=== PATIENT | male | born 1935 | race Caucasian/White ===

== ENCOUNTER 2019-05-26 13:25 | Outpatient (CLI) | payer OTHER, MEDICARE ==
--- NOTE | 2019-05-26 15:52 | Ultrasound Report ---
Reason: ELEVATED LDH Procedure Date: 05/26/2019 Accession Number: [id number] / [id number] Procedure: US - Abdomen Complete CPT Code: FULL RESULT: EXAM: ABDOMEN ULTRASOUND EXAM DATE: 05/26/2019 02:35 PM. CLINICAL HISTORY: ELEVATED LDH. 6 weeks status post CABG COMPARISON: ABDOMEN/PELVIS W/O 09/30/2014 10:33 PM. TECHNIQUE: Real-time scanning was performed with static images obtained. FINDINGS: Liver: Normal in size and increased in echotexture. 14 cm. Main portal vein flow: Hepatopetal. Gallbladder: Surgically absent. Biliary System: Common bile duct measures 7.3 mm. No intrahepatic or extrahepatic ductal dilatation. Pancreas: Not well seen. Kidneys: Right: 9.3 cm longitudinally. Normal. No contour-deforming mass, stones, or hydronephrosis. Left: 9.8 cm longitudinally. Simple cyst 2.2 x 2.4 x 2.6 cm lower pole. No contour-deforming mass, stones, or hydronephrosis. Spleen: 10.4 cm. Normal in size and echotexture. Aorta and Inferior Vena Cava: Aortic plaque. No aneurysm. Free fluid: None. IMPRESSION: 1. Increased hepatic echogenicity, likely fatty infiltration. 2. Status post cholecystectomy. 3. Left renal simple cyst. 4. Otherwise negative. RADIA
== END 2019-05-26 13:26 | disposition home or self-care (01) ==
LOC: DI 13:25
PROVIDERS: ATTEND Nurse Practitioner Family
DX: N28.1 Cyst of kidney, acquired (principal); Z90.49 Acquired absence of other specified parts of digestive tract
CPT/HCPCS: 76700

== ENCOUNTER 2023-08-29 20:14 | Emergency (ER) | payer MEDICARE, OTHER ==
[2023-08-29 20:27] VITALS: O2SAT 96
--- NOTE | 2023-08-29 20:32 | ED Physician Documentation ---
PD HPI HEAD INJURY - Stated complaint Stated Complaint: HEAD/NOSE LAC - Chief complaint Chief Complaint: Trauma Hd/Nk - Additional information Additional information: HPI from patient. At approximately 7 PM this evening, patient fell while at home taking out the garbage. He says he caught his foot on the grass and this is what caused him to fall forward. He sustained forehead abrasion and nasal laceration. He was having epistaxis which resolved. He denies loss of consciousness, headache, nausea/vomiting, AMS. Patient does not recall when his last tetanus shot was. He does not take any blood thinners aside from low-dose aspirin daily. Review of Systems Eyes: reports: Reviewed and negative Nose: reports: Epistaxis (resolved) Neurologic: denies: Headache PD PAST MEDICAL HISTORY - Past Medical History Past Medical History: Yes Cardiovascular: Hypertension GI: GERD, Hiatal hernia, Cholelithiasis - Past Surgical History Past Surgical History: Yes - Present Medications Home Medications: Ambulatory Orders Medication Instructions Recorded Confirmed Amlodipine Besylate 10 mg PO DAILY 09/30/14 05/26/15 Doxazosin [Cardura] 4 mg PO DAILY 09/30/14 05/26/15 Omeprazole 20 mg PO DAILY 09/30/14 05/26/15 hydroCHLOROthiazide 50 mg PO DAILY 09/30/14 05/26/15 [Hydrochlorothiazide] Metoprolol Tartrate 50 mg PO BID 05/27/15 05/27/15 - Allergies Allergies/Adverse Reactions: Allergies Allergy/AdvReac Type Severity Reaction Status Date / Time No Known Drug Allergies Allergy Verified 08/29/23 20:18 - Social History Does the pt smoke?: No Smoking Status: Never smoker Does the pt drink ETOH?: No Does the pt have substance abuse?: No - Immunizations Immunizations are current?: Yes - POLST Patient has POLST: No PD ED PE NORMAL - Vitals Vital signs reviewed: Yes - General General: Alert and oriented X 3, No acute distress, Well developed/nourished - HEENT HEENT: Other (no active epistaxis. no septal hematoma bilaterally) PD ED PE EXPANDED - HEENT HEENT: Other (no nasal bony tenderness) HEENT Visual: 1 - laceration (1 cm length, no bony exposure) Results - Vitals Vitals: Oxygen O2 Source Room air Procedures - Laceration (location) Nose Length in cm: 1 Wound type: Linear Skin layer closure: Dermabond Other: Patient tolerated well, No complications, Tetanus booster given PD Medical Decision Making - ED course Complexity details: considered differential, d/w patient ED course: Nasal laceration repaired with Dermabond. Tdap given (unknown last tetanus shot). No nasal tenderness nor deformity to suggest fracture. Departure - Departure Disposition: 01 Home, Self Care Clinical Impression: Nasal laceration Qualifiers: Encounter type: initial encounter Qualified Code(s): S01.21XA - Laceration without foreign body of nose, initial encounter Fall Qualifiers: Encounter type: initial encounter Qualified Code(s): W19.XXXA - Unspecified fall, initial encounter Condition: Good Instructions: ED Head Injury Closed Sleep Mon, ED Laceration Facial Skin Glue Forms: PCP List Discharge Date/Time: 08/29/23 21:37
[2023-08-29] MEDS ORDERED: TETANUS/DIPHTHERIA/PERTUSSIS 0.5 ML SYRINGE IM ONE (20:52)
[2023-08-29 21:43] VITALS: BP 157/72
== END 2023-08-29 21:37 | disposition home or self-care (01) ==
LOC: ED 20:14
DX: S01.21XA Laceration without foreign body of nose, initial encounter (principal); W01.0XXA Fall on same level from slipping, tripping and stumbling without subsequent striking against object, initial encounter; Y93.E9 Activity, other interior property and clothing maintenance; Y92.008 Other place in unspecified non-institutional (private) residence as the place of occurrence of the external cause
CPT/HCPCS: 12011; 90471; 99282